=== PATIENT | female | born 1965 ===

== ENCOUNTER → 2024-09-13 07:19 | Outpatient (REF) | payer BC, SELFPAY | LOC: WDC 07:19 | PROVIDERS: ATTENDING PHYSICIAN Nurse Practitioner Adult Health | DX: Z12.31 Encounter for screening mammogram for malignant neoplasm of breast (principal) | CPT/HCPCS: 77063; 77067 ==

== ENCOUNTER → 2024-10-25 08:24 | Outpatient (REF) | payer BC, SELFPAY | LOC: RCS 08:24 | PROVIDERS: ATTENDING PHYSICIAN Nurse Practitioner Adult Health | DX: R00.2 Palpitations (principal) | CPT/HCPCS: 93225; 93226 ==

== ENCOUNTER 2024-12-08 19:30 | Emergency (ER) | payer BC, SELFPAY ==
[2024-12-08 19:36] VITALS: BP 197/70
--- NOTE | 2024-12-08 19:57 | ED.GENMED ---
History of Present Illness
General
Chief Complaint: Flank Pain
Source: patient and family
Time Seen by Provider: 12/08/24 19:51
History of Present Illness
History of Present Illness:
This patient is a 59-year-old female who says she was perfectly well until approximately 45 minutes prior to presentation when she developed abrupt onset of pain in the right flank now in the right lower quadrant with radiation down to her right
groin area. This is associated with nausea but she denies vomiting, fever, chills, chest pain, shortness of breath. Patient states she is urinating without pain or blood. Symptoms are very familiar as to when she had a kidney stone in the past.
Past History
Past History
ED Past Medical History: Other (Lupus, kidney stone)
ED Past Surgical History: Appendectomy
Social History
Tobacco: Non-smoker
Alcohol: Occasional
Drug: None
Living: alone
Phy Exam
Physical Exam
Physical Exam:
GENERAL: Alert , appears very uncomfortable
EYE: pupils equal and reactive
NECK: Supple, no significant adenopathy.
ENT: o/p clr, mmm.
CARDIAC: Regular rate and rhythm .
LUNGS: Clear breath sounds bilaterally, no acute respiratory distress, no wheezes/rales/rhonchi
ABDOMEN: Soft, without focal tenderness, no r/g, no cvat
NEUROLOGICAL: Alert and oriented, no focal neuro deficits
SKIN: Warm and dry, skin intact.
MUSCULOSKELETAL: No edema, well perfused.
PSYCH: Normal and appropriate interaction.
Course
Orders/Labs/Results
Orders:
Orders
12/08/24 19:56
CT Abd/pel Without Iv Or Oral Urgent
Comment:
Reason For Exam: hx stones, RLQ pain
0.9% Sodium Chloride 1000 ml [Nss] 1,000 ml IV BOLUS
Ketorolac [Toradol] 15 mg IV NOW STA
Morphine Sulfate 4 mg IV NOW STA
12/08/24 20:02
Complete Blood Count/With Diff Urgent
Comprehensive Metabolic Panel Urgent
Urine Culture Reflexed from UA [Urinalysis Reflex To Culture] Urgent
Date Specimen was Collected: 12/08/24
Time Specimen was Collected: 19:42
Urine Microscopic Reflex Cult Urgent
Urine Culture Urgent
SHERRIE Source: U
Specimen Description:
Date Specimen was Collected: 12/08/24
Time Specimen was Collected: 19:42
Abnormal Lab Results
12/08/24
20:02
Creatinine 1.1 H mg/dL
(0.6-1.0)
Glucose 123 H mg/dl
(70-99)
Ur Occult Blood Reflex 1+ A
(Negative)
Leukocyte Esterase Rfl 1+ A
(Negative)
12/08/24 20:02
12/08/24 20:02
Vital Signs
Initial and Last Documented VS:
Initial Vital Signs
Temp Pulse Resp BP Pulse Ox
98.7 F 95 20 197/70 98
12/08/24 19:36 12/08/24 19:36 12/08/24 19:36 12/08/24 19:36 12/08/24 19:36
Last Documented Vital Signs
Temp Pulse Resp BP Pulse Ox
98.7 F 66 18 130/67 99
12/08/24 19:36 12/08/24 22:11 12/08/24 22:11 12/08/24 22:11 12/08/24 22:11
*Critical Care Note
Total Time (30-74mins, 75-104mins- exclusive of procedures): Not Applicable
Update Note
Update Note:
Patient presents to the Emergency Department with right-sided flank and lower quadrant pain
Number and Complexity of Problems Addressed at the Encounter
� Chronic conditions affecting care:
� Acute Exacerbation and/or Progression of Chronic Illness:
� Differential Diagnosis includes: But not limited to kidney stone, pyelonephritis, colitis, bowel obstruction, etc. etc.
Amount and/or Complexity of Data to be Reviewed and Analyzed
� I performed an independent evaluation of and my interpretation is:
EKG:
CT:No findings to confirm urinary tract calculus, dilatation or perinephric stranding bilaterally.
Prior appendectomy.
At least two subcentimeter low-attenuation right lobe hepatic lesions, too small to characterize.
Sigmoid diverticulosis.
Xrays:
Laboratory Studies: Unremarkable, microscopic hematuria noted patient made aware
Other:
� Review of other/old records reveals:
� Clinical information was obtained by an independent historian:
� Prescriptions/Medications Considered but not given:
� Further testing considered but not performed:
Risk of Complications and/or Morbidity or Mortality of Patient Management
� Social determinants of health affecting care:
� Discussion with other providers (PCP, Hospitalists, Consultants, etc):
� Escalation of care including admission/observation vs risk of discharge considered: 10:28 PM CAT scan and labs and urine reviewed with patient. She will be given a copy of her CAT scan as well as her labs and urine and
follow-up with her doctor this week. Her clinical presentation appeared very consistent with a kidney stone however none seen, no hydro, etc. No other specific etiology for her symptoms noted. She feels much better although not complete pain-free
and would like to go home. I did recommend that we consider more uncommon diagnoses such as renal infarct, consideration for CT with IV contrast, etc. She declines. She states that she would like to go home but if she has changes her
mind/develops new/worsening pain, will rted mohinder. aware of concern re:this dx.
ED Attending Note
-
Portions of this chart may have been created with voice recognition software.� Occasional wrong word or��sound alike� substitutions may have occurred due to the inherent limitations of voice recognition software.
Discharge Plan
Departure
Patient Disposition: Home (Routine Discharge)
Date of Disposition: 12/08/24
Time of Disposition: 22:24
Patient with high blood pressure during this ER visit?: Yes
Condition: Good
Discharge Problem:
Abdominal pain
Instructions: Abdominal Pain, BLOOD PRESSURE
Referrals:
Peri Moyer CRNP [Family Provider] - Tomorrow
Activity Restrictions/Additional Instructions:
PLEASE SEE ATTACHED LABS AND CAT SCAN REPORT. IT IS IMPORTANT THAT YOU FOLLOW-UP WITH YOUR DOCTOR THIS WEEK FOR CONTINUED CARE AND ASSESSMENT. IF YOU DEVELOP RECURRENT NEW OR WORSENING PAIN, VOMITING, FEVER, PAIN WITH URINATION, DIFFICULTY
URINATING, CHEST PAIN, SHORTNESS OF BREATH, OR OTHER WORRISOME SIGNS, PLEASE RETURN TO THE ER IMMEDIATELY.
Interventions
Interventions:
*Risk Screen - Suicide Last Done: 12/08/24 19:36
*General Assessment Last Done: 12/08/24 19:36
*Neglect/Abuse Screening Last Done: 12/08/24 19:41
*ED- Fall Risk Assessment Last Done: 12/08/24 19:36
*ED COVID-19 Vaccine History Last Done: 12/08/24 19:36
*Nursing Disposition Last Done: 12/08/24 22:48
CR-Vniegi-Bnzhspjgxr Assessment Last Done: 12/08/24 20:05
ED-Female Genitourinary Assessment Last Done: 12/08/24 20:05
Discharge Date and Time
Discharge Date/Time: 12/08/24 22:48
Print Language: [place]ET[place]ESE
[2024-12-08 20:05] VITALS: BMI 22.0
[2024-12-08 20:08] LABS: % Basophils 0.5 % (0-2); % Eosinophils 2.3 % (0-6); % Immature Granulocytes 0.3 % (0-0.5); % Lymphocytes 42.7 % (20.5-51.1); % Monocytes 6.2 % (1.7-9.3); Absolute Eosinophils 0.2 10^3/uL (0-0.7); Absolute Lymphocytes 3.1 10^3/uL (1.2-3.4); Absolute Monocytes 0.5 10^3/uL (0.1-0.6); Absolute Neutrophils 3.5 10^3/uL (1.4-6.5); Hemoglobin 13.3 g/dL (12.0-16.0); Mean Corpuscular Hgb 29.6 pg (27.0-31.0); Mean Corpuscular Volume 84.6 fL (81.0-99.0); Mean Platelet Volume 9.6 fL (7.4-10.4); Nucleated Red Blood Cells % 0 %; Platelet Count 218 10^3/uL (130-400); Red Blood Cell Count 4.49 10^6/uL (4.20-5.40); Red Cell Dist. Width 12.5 % (11.5-14.5); White Blood Cell Count 7.3 10^3/uL (4.8-10.8)
[2024-12-08] MEDS: MORPHINE SULFATE 4 MG IV (20:08)
[2024-12-08] MEDS: NSS 1000 IV (20:08)
[2024-12-08 20:09] LABS: Urine Albumin Negative (Neg - Trace); Urine Bilirubin Negative (Negative); Urine Character Clear (Clear); Urine Color Yellow; Urine Glucose Negative (Negative); Urine Ketone Negative (Negative); Urine Leukocyte 1+ (Negative); Urine Nitrite Negative (Negative); Urine Occult Blood 1+ (Negative); Urine Specific Gravity 1.015 (<1.030); Urine Urobilinogen Negative (Neg - 1+)
[2024-12-08] MEDS: TORADOL 15 MG IV (20:09)
[2024-12-08 20:21] LABS: Urine Red Blood Cell 0-2 /HPF (0-2); Urine Squamous Cell 0-2 /LPF (Few); Urine White Cell 0-2 /HPF (0-5)
[2024-12-08 20:39] LABS: ALT (SGPT) 31 U/L (0-35); AST (SGOT) 31 U/L (14-36); Albumin 4.2 g/dl (3.5-5.0); Alkaline Phosphatase 54 U/L (38-126); Blood Urea Nitrogen 16 mg/dl (7-17); Calcium 9.7 mg/dl (8.4-10.2); Carbon Dioxide 24 mmol/L (22-30); Chloride 107 mmol/L (98-107); Estimated Creatinine Clearance 48 ml/min; Glucose 123 mg/dl (70-99); Sodium 142 mmol/L (135-145); Total Bilirubin 0.3 mg/dl (0.2-1.3); Total Protein 6.6 g/dl (6.3-8.2); eGFR 57.88
[2024-12-08 22:11] VITALS: BP 130/67
== END 2024-12-08 22:48 | disposition home or self-care (01) ==
LOC: EMR 19:30
PROVIDERS: Emergency Medicine; EMERGENCY PHYSICIAN Emergency Medicine; FAMILY PHYSICIAN Nurse Practitioner Adult Health
DX: R10.9 Unspecified abdominal pain (principal); M32.9 Systemic lupus erythematosus, unspecified; Z87.442 Personal history of urinary calculi; Z90.49 Acquired absence of other specified parts of digestive tract
CPT/HCPCS: 99284; 96374; 96375; 74176; 80053; 81003; 81015; 85025; 87086

== ENCOUNTER → 2025-07-04 17:46 | Outpatient (REF) | payer BC, SELFPAY | LOC: RAD 17:46 | PROVIDERS: ATTENDING PHYSICIAN Nurse Practitioner Adult Health | DX: M54.41 Lumbago with sciatica, right side (principal) | CPT/HCPCS: 72110 ==